=== PATIENT | male | born 1980 | race African-American/Black ===

== ENCOUNTER 2020-09-06 12:41 | Emergency (ER) | payer MEDICAID ==
[~2020-09-06] VITALS: Ht 165.1 cm; Wt 82.2 kg
[2020-09-06 17:44] VITALS: BP 133/80
== END 2020-09-06 19:23 | disposition left against medical advice (07) ==
LOC: EMS 12:42
DX: F22 Delusional disorders (principal); F15.10 Other stimulant abuse, uncomplicated; F17.210 Nicotine dependence, cigarettes, uncomplicated
CPT/HCPCS: 99281; Z7502